=== PATIENT | female | born 1955 | race Caucasian/White ===

== ENCOUNTER 2018-08-28 07:07 | Day surgery (SDC) | payer MEDICAID ==
[~2018-08-28] VITALS: Ht 157.5 cm; Wt 77.1 kg
[~2018-08-28 07:07] MED LIST: LACTATED RINGERS 1,000 ML IV SCH; LISI30TA36 PO; TIMO5DRO27 RIGHTEYE; XALAO RIGHTEYE
[2018-08-28] MEDS ORDERED: LACTATED RINGERS 1,000 ML IV SCH (07:45)
[2018-08-28] MEDS ORDERED: PROPOFOL 200MG/20ML VIAL IV ONE (08:44)
[2018-08-28] MEDS ORDERED: DIPHENHYDRAMINE 50MG/ML VIAL ONE (08:44)
[2018-08-28] MEDS ORDERED: HYDRALAZINE 20MG/ML VIAL ONE (08:57)
[2018-08-28] MEDS ORDERED: SODIUM CHLORIDE 0.9% 10ML VIAL ONE (08:58)
[2018-08-28] MEDS ORDERED: PREDNISOLONE ACETATE 1% OPHTH DROPS 1ML ONE (13:12)
[2018-08-28] MEDS ORDERED: BUPIVACAINE HCL/PF 0.75% (7.5MG/ML) 10ML ONE (13:12)
[2018-08-28] MEDS ORDERED: ACETYLCHOLINE CHLORIDE INTRAOCULAR SOLUTION 1:100 ELECTROLYTE DILUENT IO ONE (13:12)
[2018-08-28] MEDS ORDERED: CIPROFLOXACIN 0.3% OPHTH SOLN 2.5ML ONE (13:12)
[2018-08-28] MEDS ORDERED: BALANCED SALT IRRIG SOLN 15ML ONE (13:12)
[2018-08-28] MEDS ORDERED: LIDOCAINE HCL/PF 2% 20 MG/ML 10ML VIAL ONE (13:12)
[2018-08-28] MEDS ORDERED: LIDOCAINE HCL 2%/EPINEPHRINE 1:100,000 20 ML VIAL INFIL ONE (13:12)
[2018-08-28] MEDS ORDERED: TETRACAINE 0.5% OPHTH DROPS 4ML ONE (13:12)
[2018-08-28] MEDS ORDERED: NEO/POLYMYX B SULF/DEXAMETH OPHTH OINT 3.5GM ONE (13:12)
== END 2018-08-28 11:30 | disposition home or self-care (01) ==
LOC: OR 07:07
PROVIDERS: ATTEND Ophthalmology
DX: H40.9 Unspecified glaucoma (principal)
CPT/HCPCS: 66170; J0360; J1200; J2704; J3490

== ENCOUNTER 2018-09-21 09:37 | Day surgery (SDC) | payer MEDICAID ==
[~2018-09-21] VITALS: Ht 157.5 cm; Wt 77.1 kg
[~2018-09-21 09:37] MED LIST changes: -LACTATED RINGERS 1,000 ML IV SCH; -TIMO5DRO27 RIGHTEYE; -XALAO RIGHTEYE
[2018-09-21] MEDS ORDERED: TRIAMCINOLONE ACETONIDE 40MG/ML 1ML VIAL ONE (10:21)
[2018-09-21] MEDS ORDERED: LACTATED RINGERS 1,000 ML IV SCH (11:15)
[2018-09-21] MEDS ORDERED: PRED12O RIGHTEYE (11:32)
[2018-09-21] MEDS ORDERED: TIMO5DRO32 RIGHTEYE (11:32)
[2018-09-21] MEDS ORDERED: DIFL5DRO RIGHTEYE (11:32)
[2018-09-21] MEDS ORDERED: LATA7.5D RIGHTEYE (11:32)
[2018-09-21] MEDS ORDERED: MITOMYCIN 0.2 MG KIT OP SCH (12:00)
[2018-09-21] MEDS ORDERED: LIDOCAINE HCL 2%/EPINEPHRINE 1:100,000 20 ML VIAL INFIL ONE (14:00)
[2018-09-21] MEDS ORDERED: BALANCED SALT IRRIG SOLN 15ML ONE (14:00)
[2018-09-21] MEDS ORDERED: TETRACAINE 0.5% OPHTH DROPS 4ML ONE (14:00)
[2018-09-21] MEDS ORDERED: NEO/POLYMYX B SULF/DEXAMETH OPHTH OINT 3.5GM ONE (14:00)
[2018-09-21] MEDS ORDERED: BUPIVACAINE HCL/PF 0.75% (7.5MG/ML) 10ML ONE (14:00)
[2018-09-21] MEDS ORDERED: CIPROFLOXACIN 0.3% OPHTH SOLN 2.5ML ONE (14:00)
[2018-09-21] MEDS ORDERED: PREDNISOLONE ACETATE 1% OPHTH DROPS 1ML ONE (14:00)
[2018-09-21] MEDS ORDERED: FENTANYL CITRATE/PF 50MCG/ML 2ML VIAL ONE (14:42)
[2018-09-21] MEDS ORDERED: PROPOFOL 200MG/20ML VIAL IV ONE (14:42)
[2018-09-21] MEDS ORDERED: LIDOCAINE HCL/PF 1% 10 MG/ML 5ML VIAL ONE (14:42)
[2018-09-21] MEDS ORDERED: MIDAZOLAM HCL 2 MG/2 ML VIAL ONE (14:42)
[2018-09-21] MEDS ORDERED: DIPHENHYDRAMINE 50MG/ML VIAL ONE (14:53)
[2018-09-21] MEDS ORDERED: SODIUM CHLORIDE 0.9% 10ML VIAL ONE (14:58)
[2018-09-21] MEDS ORDERED: CEFAZOLIN SODIUM 1000MG/VIAL ONE (14:58)
[2018-09-21] MEDS ORDERED: HYDROMORPHONE HCL/PF 2MG/ML CPJ IV PRN (16:00)
== END 2018-09-21 16:35 | disposition home or self-care (01) ==
LOC: OR 09:37
PROVIDERS: ATTEND Ophthalmology
DX: H40.89 Other specified glaucoma (principal); I10 Essential (primary) hypertension; Z79.899 Other long term (current) drug therapy; Z98.890 Other specified postprocedural states
CPT/HCPCS: 66172; J0690; J1200; J2250; J2704; J3010; J3301; J3490; J9280

== ENCOUNTER → 2019-09-06 | Outpatient (CLI) | payer MEDICAID ==
[~2019-09-06] MED LIST changes: +DIFL5DRO RIGHTEYE; +LATA7.5D RIGHTEYE; +PRED12O RIGHTEYE; +TIMO5DRO32 RIGHTEYE
== END | disposition home or self-care (01) ==
LOC: LAB 12:07
PROVIDERS: ATTEND Ophthalmology
DX: Z01.818 Encounter for other preprocedural examination (principal); Z11.59 Encounter for screening for other viral diseases
CPT/HCPCS: C9803; U0003

== ENCOUNTER 2019-09-10 05:50 | Day surgery (SDC) | payer MEDICAID ==
[~2019-09-10] VITALS: Ht 157.5 cm; Wt 77.1 kg
[~2019-09-10 05:50] MED LIST changes: +CYCLOPENTOLATE HCL 1% OPHTH DROPS 2ML RIGHTEYE NR
[2019-09-10] MEDS ORDERED: TROPICAMIDE 1% OPHTH DROPS 15ML RIGHTEYE NR (06:00)
[2019-09-10] MEDS ORDERED: LACTATED RINGERS 1,000 ML IV SCH (06:00)
[2019-09-10] MEDS ORDERED: PHENYLEPHRINE HCL 10% OPHTH DROPS 5ML RIGHTEYE NR (06:00)
[2019-09-10 06:42] LABS: BASOPHILS % 0.6 % (0.0-2.0); CHLORIDE 108 mEq/L (98-107); EOSINOPHILS % 3.3 % (0.0-5.0); HEMOGLOBIN. 13.8 g/dL (12.0-16.0); LYMPHOCYTES % 34.2 % (20.0-50.0); MEAN CORPUSCULAR HEMOGLOBIN 31.6 pg (28.0-32.0); MEAN CORPUSCULAR VOLUME 91.3 fL (81.0-99.0); MEAN PLATELET VOLUME 8.9 fl (7.4-10.4); NEUTROPHILS % 53.9 % (40.0-76.0); PLATELET 189 x1000/uL (130-400); RED BLOOD CELL COUNT 4.38 mill/uL (4.2-5.4); RED CELL DISTRIBUTION WIDTH 13.4 % (11.6-14.6)
[2019-09-10] MEDS ORDERED: BALANCED SALT IRRIG SOLN COMB1 500ML OP SCH (07:00)
[2019-09-10] MEDS ORDERED: HYALURONATE SODIUM 10 MG/ML 0.55ML SYRINGE IO ONE ×2 (07:07→09:34)
[2019-09-10] MEDS ORDERED: MIDAZOLAM HCL 2 MG/2 ML VIAL ONE (08:47)
[2019-09-10] MEDS ORDERED: PROPOFOL 200MG/20ML VIAL IV ONE (09:01)
[2019-09-10] MEDS ORDERED: SUCCINYLCHOLINE CHLORIDE 200MG/10ML IV ONE (09:02)
[2019-09-10] MEDS ORDERED: TRYPAN BLUE 0.5 ML DISP.SYRIN IO ONE (09:02)
[2019-09-10] MEDS ORDERED: CIPROFLOXACIN 0.3% OPHTH SOLN 2.5ML ONE (11:00)
[2019-09-10] MEDS ORDERED: BALANCED SALT IRRIG SOLN 15ML ONE (11:00)
[2019-09-10] MEDS ORDERED: LIDOCAINE HCL 2%/EPINEPHRINE 1:100,000 20 ML VIAL INFIL ONE (11:00)
[2019-09-10] MEDS ORDERED: PREDNISOLONE ACETATE 1% OPHTH DROPS 5ML ONE (11:00)
[2019-09-10] MEDS ORDERED: ACETYLCHOLINE CHLORIDE INTRAOCULAR SOLUTION 1:100 ELECTROLYTE DILUENT IO ONE (11:00)
[2019-09-10] MEDS ORDERED: LIDOCAINE HCL/PF 2% 20 MG/ML 10ML VIAL ONE (11:00)
[2019-09-10] MEDS ORDERED: TETRACAINE 0.5% OPHTH DROPS 4ML ONE (11:00)
[2019-09-10] MEDS ORDERED: BUPIVACAINE HCL/PF 0.75% (7.5MG/ML) 10ML ONE (11:00)
== END 2019-09-10 11:20 | disposition home or self-care (01) ==
LOC: OR 05:50
PROVIDERS: ATTEND Ophthalmology
DX: H25.21 Age-related cataract, morgagnian type, right eye (principal); I10 Essential (primary) hypertension; Z79.899 Other long term (current) drug therapy; Z71.89 Other specified counseling; Z98.890 Other specified postprocedural states
CPT/HCPCS: 36415; 66982; 67005; 80048; 85025; 93005; J0330; J2250; J2704; J3490; Q9957; V2630; V2632

== ENCOUNTER → 2023-07-11 | Day surgery (SDC) | payer MEDICAID ==
[~2023-07-11] VITALS: Ht 165.1 cm; Wt 77.1 kg
[~2023-07-11] MED LIST changes: +ACETYLCHOLINE CHLORIDE INTRAOCULAR SOLUTION 1:100 ELECTROLYTE DILUENT IO ONE; +ATOR20TA65 MT; +BALANCED SALT IRRIG SOLN COMB1 500ML OP NR; +CYCLOPENTOLATE HCL 1% OPHTH DROPS 2ML LEFTEYE ONE; -CYCLOPENTOLATE HCL 1% OPHTH DROPS 2ML RIGHTEYE NR; -DIFL5DRO RIGHTEYE; +FENTANYL CITRATE/PF 50MCG/ML 2ML VIAL ONE; +HYALURONATE SODIUM 10 MG/ML 0.55ML SYRINGE IO ONE; +HYDROMORPHONE HCL/PF 2MG/ML CPJ IV PRN; +LABETALOL 5MG/ML SYR 20 MG/4 ML SYRINGE IV PRN; +LISI20TA31 PO; -LISI30TA36 PO; +MEPERIDINE HCL/PF 25MG/ML CPJ IV PRN; +MIDAZOLAM HCL 2 MG/2 ML VIAL ONE; +ONDANSETRON HCL 4MG/2ML INJ IV PRN; +PHENYLEPHRINE HCL 10% OPHTH DROPS 5ML LEFTEYE ONE; +TRYPAN BLUE 0.5 ML DISP.SYRIN IO ONE
[2023-07-11] MEDS: TROPICAMIDE 1% OPHTH DROPS 15ML LEFTEYE NR (07:27)
[2023-07-11] MEDS: LACTATED RINGERS 1,000 ML IV SCH (07:27)
== END | disposition home or self-care (01) ==
LOC: OR 06:25
PROVIDERS: ATTEND Ophthalmology
DX: H25.89 Other age-related cataract (principal); I10 Essential (primary) hypertension; Z79.899 Other long term (current) drug therapy; Z98.890 Other specified postprocedural states
CPT/HCPCS: 66984; J3010; J3490 ×2; J2250; V2632; Q9957